=== PATIENT | female | born 1975 | race Caucasian/White ===

== ENCOUNTER → 2018-07-12 | Outpatient (CLI) | payer SELFPAY ==
--- NOTE | 2018-07-12 12:22 | RAD ---
EXAM: Abdomen sonogram. HISTORY: Hepatosplenomegaly. TECHNIQUE: Sonographic imaging of the abdomen was performed. COMPARISON: None. FINDINGS: The liver is enlarged. There is hepatic steatosis. No focal hepatic lesion is seen. The common bile duct is slightly dilated for patient age, measuring 5.5 mm. The gallbladder is surgically absent. The kidneys are normal in size. There is suspected right pelviectasis or an extrarenal pelvis and moderate left hydronephrosis or multiple left renal parapelvic cysts. No solid or cystic renal lesion is seen. The spleen is enlarged, measuring 14.0 cm. The pancreas is obscured due to bowel gas. The aorta is normal in caliber. The inferior vena cava is patent. There is no free fluid. IMPRESSION: 1. Hepatosplenomegaly and hepatic steatosis. 2. Prominent common bile duct, likely due to reservoir effect status post cystectomy. 3. Right pelviectasis or extrarenal pelvis and moderate left hydronephrosis or multiple parapelvic cysts. 4. Obscured pancreas due to bowel gas. Electronically signed by: Anila Ayala MD (07/12/2018 12:18 PM) [id number]
== END | disposition home or self-care (01) ==
LOC: US 10:28
DX: K76.0 Fatty (change of) liver, not elsewhere classified (principal); R16.2 Hepatomegaly with splenomegaly, not elsewhere classified; Z98.890 Other specified postprocedural states
CPT/HCPCS: 76700